=== PATIENT | male | born 1985 | race Caucasian/White ===

== ENCOUNTER 2016-09-02 12:42 | Emergency (ER) | payer SELFPAY ==
[~2016-09-02] VITALS: Ht 193 cm; Wt 77.0 kg
[~2016-09-02 12:42] MED LIST: AMOXICILLIN 50500 MG PO; AMOXICILLIN875 MG PO; CEPHALEXIN500 M1 PO; CLEOCIN HC150 MG/CAP PO; DOXYCYCLINE 10100 MG PO; MEDROL 4MG DOSPA4 MG PO; MOTRIN 200200 MG/TAB PO; MOTRIN 800800 MG/TAB PO; MOTRIN800 MG PO; NO HOME MEDICATIONS; NORCO 325 MG-51 TAB PO; NORCO 325 MG-7.1 TAB PO; PERCOCET 325 MG1 TA2 PO; PREDNISONE20 MG PO; TUSS PO; ULTRAM 50MG TAB50 MG PO
[2016-09-02 13:38] VITALS: BP 135/69; TEMP 97.2
[2016-09-02 15:07] VITALS: PULSE 76
== END 2016-09-02 15:08 | disposition home or self-care (01) ==
LOC: COL.ER 12:42
DX: J06.9 Acute upper respiratory infection, unspecified (principal)

== ENCOUNTER 2017-04-09 17:01 | Emergency (ER) | payer SELFPAY ==
[~2017-04-09] VITALS: Ht 193 cm; Wt 71.5 kg
[2017-04-09 17:05] VITALS: TEMP 98.1
[2017-04-09 17:33] LABS: PH 7 (5-8); SQUAMOUS EPITHELIAL None Seen /hpf; URINE APPEARANCE Cloudy; URINE BACTERIA None Seen /hpf; URINE BILIRUBIN Negative (NEGATIVE); URINE BLOOD 3+ (NEGATIVE); URINE COLOR Yellow; URINE GLUCOSE Negative (NEGATIVE); URINE KETONE Negative (NEGATIVE); URINE RBC >50 /hpf; URINE UROBILINOGEN Negative (NEGATIVE); URINE WBC None Seen /hpf
[2017-04-09 17:59] LABS: BASO # 0.1 (0.0-0.2); BASO % 0.6 % (0.0-2.0); EOS # 0.5 (0.0-0.7); EOS % 4.4 % (0-4.0); GRAN # 7.6 (1.4-6.5); GRAN % 67.1 % (42.2-75.2); HEMATOCRIT 42.7 % (42.0-52.0); HEMOGLOBIN 14.7 g/dl (13.5-18.0); LYMPH # 2.5 (1.2-3.4); LYMPH % 22.1 % (20.0-51.0); MEAN CELL VOLUME 88 fl (80.0-100.0); MEAN CORPUSCULAR HEMOGLOBIN 30 pg (27.0-31.0); MEAN CORPUSCULAR HGB CONC 34 g/dl (33.0-37.0); MEAN PLATELET VOLUME 9.4 fl (7.4-10.4); MONO # 0.6 (0.1-0.6); MONO % 5.6 % (1.7-9.3); PLATELET COUNT 305 K/mm3 (130-400); RED BLOOD COUNT 4.86 M/mm3 (4.20-5.60); REDCELL DISTRIBUTION WIDTH-CV 13.1 % (11.5-14.5); WHITE BLOOD COUNT 11.3 K/mm3 (4.8-10.8)
[2017-04-09 18:09] LABS: ADJUSTED CALCIUM 9.8 mg/dL (8.4-10.2); ALBUMIN 4.3 gm/dL (3.5-5.0); BILIRUBIN,TOTAL 0.6 mg/dL (0.0-1.0); CREATININE, serum 0.99 mg/dL (0.66-1.25); POTASSIUM 3.9 mmol/L (3.4-5.0); TOTAL PROTEIN 7.4 gm/dL (6.4-8.2)
[2017-04-09] MEDS ORDERED: PERCOCET 325 MG1 TA2 PO (19:34)
[2017-04-09] MEDS ORDERED: ZOFRAN 4MG T4 MG/TAB PO (19:34)
[2017-04-09 19:44] VITALS: BP 122/62; PULSE 82
== END 2017-04-09 19:46 | disposition home or self-care (01) ==
LOC: COL.ER 17:01
PROVIDERS: Nurse Practitioner
DX: N13.2 Hydronephrosis with renal and ureteral calculous obstruction (principal); Z87.442 Personal history of urinary calculi; G89.29 Other chronic pain; M54.5 Low back pain
CPT/HCPCS: J1170; J7030; Q9967

== ENCOUNTER 2018-06-23 15:23 | Emergency (ER) | payer SELFPAY ==
[~2018-06-23] VITALS: Ht 193 cm; Wt 95.5 kg
[~2018-06-23 15:23] MED LIST changes: +ZOFRAN 4MG T4 MG/TAB PO
[2018-06-23] MEDS ORDERED: NORCO 325 MG-51 TAB PO (17:06)
[2018-06-23] MEDS ORDERED: CLEOCIN HCL300 MG PO (17:06)
[2018-06-23 17:15] VITALS: BP 138/81; PULSE 50; TEMP 99.1
== END 2018-06-23 17:15 | disposition home or self-care (01) ==
LOC: COL.ER 15:23
DX: K02.9 Dental caries, unspecified (principal); F17.210 Nicotine dependence, cigarettes, uncomplicated

== ENCOUNTER 2018-08-28 13:14 | Emergency (ER) | payer SELFPAY ==
[~2018-08-28] VITALS: Ht 193 cm; Wt 70.0 kg
[~2018-08-28 13:14] MED LIST changes: +CLEOCIN HCL300 MG PO
[2018-08-28 13:26] VITALS: BP 122/60; TEMP 97.9
[2018-08-28] MEDS ORDERED: CEPHALEXIN500 M1 PO (16:48)
[2018-08-28 18:27] VITALS: PULSE 71
== END 2018-08-28 18:27 | disposition home or self-care (01) ==
LOC: COL.ER 13:14
DX: S60.551A Superficial foreign body of right hand, initial encounter (principal); F17.210 Nicotine dependence, cigarettes, uncomplicated; Z23 Encounter for immunization; W34.010A Accidental discharge of airgun, initial encounter; Y92.009 Unspecified place in unspecified non-institutional (private) residence as the place of occurrence of the external cause
CPT/HCPCS: Q4050

== ENCOUNTER 2019-03-03 19:33 | Emergency (ER) | payer SELFPAY ==
[~2019-03-03] VITALS: Ht 193 cm; Wt 79.5 kg
[2019-03-03 19:39] VITALS: BP 128/73; PULSE 94; TEMP 97.7
== END 2019-03-03 20:58 | disposition home or self-care (01) ==
LOC: COL.ER 19:33
DX: S69.92XA Unspecified injury of left wrist, hand and finger(s), initial encounter (principal); F17.210 Nicotine dependence, cigarettes, uncomplicated; Z88.6 Allergy status to analgesic agent; Z88.8 Allergy status to other drugs, medicaments and biological substances; V19.9XXA Pedal cyclist (driver) (passenger) injured in unspecified traffic accident, initial encounter; Y92.410 Unspecified street and highway as the place of occurrence of the external cause

== ENCOUNTER 2019-05-02 10:27 | Emergency (ER) | payer SELFPAY ==
[~2019-05-02] VITALS: Ht 193 cm; Wt 84.1 kg
[2019-05-02 10:33] VITALS: BP 121/76; PULSE 88
[2019-05-02] MEDS ORDERED: LIDODERM 5% PATC1 EA TP (11:50)
[2019-05-02 12:05] VITALS: TEMP 98.6
== END 2019-05-02 12:14 | disposition home or self-care (01) ==
LOC: COL.ER 10:27
DX: S20.211A Contusion of right front wall of thorax, initial encounter (principal); F17.210 Nicotine dependence, cigarettes, uncomplicated; V19.9XXA Pedal cyclist (driver) (passenger) injured in unspecified traffic accident, initial encounter; Y92.410 Unspecified street and highway as the place of occurrence of the external cause
CPT/HCPCS: A9284

== ENCOUNTER 2019-08-27 06:11 | Emergency (ER) | payer SELFPAY ==
[~2019-08-27] VITALS: Ht 193 cm; Wt 84.1 kg
[~2019-08-27 06:11] MED LIST changes: +LIDODERM 5% PATC1 EA TP
[2019-08-27 06:16] VITALS: BP 146/76; TEMP 98.3
[2019-08-27] MEDS ORDERED: PEN-VEE K500 MG PO (06:58)
[2019-08-27] MEDS ORDERED: NORCO 325 MG-51 TAB PO (06:59)
[2019-08-27 07:08] VITALS: PULSE 90
== END 2019-08-27 07:08 | disposition home or self-care (01) ==
LOC: COL.ER 06:11
DX: K02.9 Dental caries, unspecified (principal)

== ENCOUNTER 2020-03-08 22:42 | Emergency (ER) | payer SELFPAY ==
[~2020-03-08] VITALS: Ht 193 cm; Wt 88.6 kg
[~2020-03-08 22:42] MED LIST changes: +PEN-VEE K500 MG PO
[2020-03-08 22:48] VITALS: BP 124/80; PULSE 87; TEMP 99
== END 2020-03-08 23:38 | disposition home or self-care (01) ==
LOC: COL.ER 22:42
DX: S60.212A Contusion of left wrist, initial encounter (principal); F17.210 Nicotine dependence, cigarettes, uncomplicated; Z88.6 Allergy status to analgesic agent; V18.9XXA Unspecified pedal cyclist injured in noncollision transport accident in traffic accident, initial encounter; Y92.410 Unspecified street and highway as the place of occurrence of the external cause

== ENCOUNTER 2020-03-29 12:30 | Emergency (ER) | payer SELFPAY ==
[~2020-03-29] VITALS: Ht 193 cm; Wt 90.9 kg
[2020-03-29 12:40] VITALS: BP 132/82; TEMP 98.4
[2020-03-29] MEDS ORDERED: MEDROL 4MG DOSPA4 MG PO (14:23)
[2020-03-29] MEDS ORDERED: LIDODERM 5% PATC1 EA TP (14:24)
[2020-03-29 14:40] VITALS: PULSE 68
== END 2020-03-29 14:40 | disposition home or self-care (01) ==
LOC: COL.ER 12:30
DX: S20.212A Contusion of left front wall of thorax, initial encounter (principal); F17.210 Nicotine dependence, cigarettes, uncomplicated; Z88.5 Allergy status to narcotic agent; V29.9XXA Motorcycle rider (driver) (passenger) injured in unspecified traffic accident, initial encounter
CPT/HCPCS: J1885

== ENCOUNTER 2020-04-24 12:12 | Emergency (ER) | payer SELFPAY ==
[~2020-04-24] VITALS: Ht 193 cm; Wt 88.6 kg
[2020-04-24 12:17] VITALS: TEMP 98.5
[2020-04-24 14:20] VITALS: BP 111/78; PULSE 85
== END 2020-04-24 14:22 | disposition home or self-care (01) ==
LOC: COL.ER 12:12
DX: S62.306A Unspecified fracture of fifth metacarpal bone, right hand, initial encounter for closed fracture (principal); F17.210 Nicotine dependence, cigarettes, uncomplicated; X50.1XXA Overexertion from prolonged static or awkward postures, initial encounter
CPT/HCPCS: Q4021

== ENCOUNTER 2020-07-29 08:50 | Day surgery (SDC) | payer OTHER ==
[~2020-07-29] VITALS: Ht 193 cm; Wt 75.5 kg
[~2020-07-29 08:50] MED LIST changes: +COLACE 100100 MG/CAP PO; +MIRALAX PA17 GM/Dose PO; +MOTRIN 600600 MG/TAB PO; +ROXICODONE 55 MG/TAB PO
[2020-07-29] MEDS ORDERED: TYLENOL 500MG500 MG PO (10:06)
[2020-07-29 10:10] VITALS: BP 104/60; PULSE 81; TEMP 98.1
--- NOTE | 2020-07-29 10:10 | NUR ---
Patient arrives back to [facility] alert, denies nausea, complains of slight pain at staple removal sight. New dressing/taisha wrap in place. No drainage noted. Patient monitor applied, vitals stable. Patient given muffins and soda.
[2020-07-29 10:25] VITALS: BP 108/65; PULSE 77
--- NOTE | 2020-07-29 10:25 | NUR ---
Patient given more muffins and coffee. Vitals stable. Patient reports still has slight pain, resting comfortably. Patient educated to take Tylenol at home per doctor instructions.
[2020-07-29 10:40] VITALS: BP 116/65; PULSE 75
--- NOTE | 2020-07-29 10:45 | NUR ---
Patient tolerated food and drink without any nausea, vitals stable. Patient reports he is ready to go home.
--- NOTE | 2020-07-29 11:10 | NUR ---
Dismissal instructions gone over with patient, he voices understanding and all questions answered.
--- NOTE | 2020-07-29 11:25 | NUR ---
Patient discharged to private vehicle his girlfriend is driving at patient enterance via wheelchair. Patient leaves thanking staff for services.
[2020-07-29 11:54] VITALS: BP 117/75; PULSE 82; TEMP 98.1
== END 2020-07-29 11:25 | disposition home or self-care (01) ==
LOC: SDCO 08:50
DX: Z48.02 Encounter for removal of sutures (principal); F17.290 Nicotine dependence, other tobacco product, uncomplicated; Z79.899 Other long term (current) drug therapy; Z88.6 Allergy status to analgesic agent
CPT/HCPCS: J2704; J7120

== ENCOUNTER 2021-02-06 21:22 | Emergency (ER) | payer SELFPAY ==
[~2021-02-06] VITALS: Ht 193 cm; Wt 81.4 kg
[~2021-02-06 21:22] MED LIST changes: +TYLENOL 500MG500 MG PO
[2021-02-06 21:33] VITALS: TEMP 97.8
[2021-02-06 21:56] LABS: BASO # 0.1 (0.0-0.2); BASO % 0.7 % (0.0-2.0); EOS # 0.1 (0.0-0.7); EOS % 1.5 % (0-4.0); GRAN # 6.1 (1.4-6.5); GRAN % 66.9 % (42.2-75.2); HEMOGLOBIN 12.8 g/dl (13.5-18.0); LYMPH # 2.1 (1.2-3.4); LYMPH % 22.9 % (20.0-51.0); MEAN CELL VOLUME 88 fl (80.0-100.0); MEAN CORPUSCULAR HEMOGLOBIN 30 pg (27.0-31.0); MEAN CORPUSCULAR HGB CONC 34 g/dl (33.0-37.0); MEAN PLATELET VOLUME 9.2 fl (7.4-10.4); MONO # 0.7 (0.1-0.6); MONO % 7.7 % (1.7-9.3); PLATELET COUNT 270 K/mm3 (130-400); RED BLOOD COUNT 4.33 M/mm3 (4.20-5.60); REDCELL DISTRIBUTION WIDTH-CV 13.2 % (11.5-14.5)
[2021-02-06 22:10] LABS: ALANINE AMINOTRANSFERASE 15 U/L (4-49); ALKALINE PHOSPHATASE 123 U/L (50-136); ANION GAP 6 mmol/L (7-16); AST,SGOT 23 U/L (15-37); BILIRUBIN,TOTAL 0.2 mg/dL (0.0-1.0); BLOOD UREA NITROGEN 19 mg/dL (9-20); CALCIUM 9.2 mg/dL (8.4-10.2); CARBON DIOXIDE 25 mmol/L (22-30); CHLORIDE 105 mmol/L (98-107); CREATININE, serum 1.23 (0.66-1.25); GLUCOSE 130 mg/dL (74-106); POTASSIUM 3.5 mmol/L (3.4-5.0); SODIUM 136 mmol/L (137-145); TOTAL PROTEIN 7.1 gm/dL (6.4-8.2)
[2021-02-06 22:20] LABS: TROPONIN-I 0.016 ng/mL (0.000-0.035)
[2021-02-06 22:44] LABS: C-REACTIVE PROTEIN < 0.5 mg/dL (0.0-0.9)
[2021-02-07 00:11] VITALS: BP 128/76; PULSE 100
== END 2021-02-07 00:11 | disposition home or self-care (01) ==
LOC: COL.ER 21:22
PROVIDERS: Emergency Medicine
DX: M79.89 Other specified soft tissue disorders (principal); R60.0 Localized edema; F17.210 Nicotine dependence, cigarettes, uncomplicated; Z98.890 Other specified postprocedural states
CPT/HCPCS: J7030